=== PATIENT | female | born 1990 | race Caucasian/White ===

== ENCOUNTER 2018-11-08 13:34 | Emergency (ER) | payer OTHER, MEDICAID, SELFPAY ==
[2018-11-08 13:35] VITALS: BP 108/60; PULSE 71; RESP 18; TEMP 36.6; O2SAT 100; BMI 21.0
--- NOTE | 2018-11-08 14:22 | ED_ITS ---
HPI - Nausea/Vomiting/Diarrhea General Chief complaint: Nausea/Vomiting/Diarrhea Stated complaint: vomiting,diarrhea,migraine,fever Time Seen by Provider: 11/08/18 13:37 Source: patient Mode of arrival: ambulatory Limitations: no limitations History of Present Illness HPI Narrative: Patient is a 28-year-old female presenting with vomiting and diarrhea ongoing for the last 3 days. She currently lives in [facility], her has had some symptoms as well for the last 3 days but hers have been worse. She has had frequent episodes of diarrhea sometimes bloody she has pain with diarrhea. She has vomited numerous times. She is unable to keep anything down. She has no localization of abdominal pain. They do not recall that they have eaten anything bad. was recently started on azithromycin for jen matute's diarrhea. She denies any recent antibiotic use. MD complaint: nausea, vomiting, diarrhea and abdominal pain Onset (ago): day(s) (3) Description of Diarrhea: watery and blood-streaked Context: foreign travel Related Data Previous Rx's Medication Instructions Recorded azithromycin 500 mg PO DAILY 3 Days #3 tab 11/08/18 ondansetron 4 mg PO Q8H PRN #10 tab 11/08/18 Allergies Allergy/AdvReac Type Severity Reaction Status Date / Time Sulfa (Sulfonamide Allergy Verified 11/08/18 13:42 Antibiotics) Review of Systems Review of Systems GENERAL: Denies chills, fatigue, malaise, fever, sweats, travel HEENT: Denies sinus pain, ear pain, sore throat, difficulty swallowing, neck pain RESPIRATORY: Denies dyspnea, cough, wheezing, hemoptysis, sputum. CARDIOVASCULAR: Denies chest pain, palpitations, orthopnea, edema GASTROINTESTINAL: See HPI : Denies dysuria, frequency, incontinence, hematuria, urinary retention, flank pain. MUSCULOSKELETAL: Denies weakness, joint pain, or bony pain SKIN: No rash, no erythema, no pruritus NEUROLOGIC: Denies weakness, dizziness, headache, numbness, change in speech, confusion PSYCHIATRIC: No concerning psychosocial issues. 12 point review of systems is negative except for those stated above and HPI FOR[facility]LY [facility] Medical History Patient denies significant medical history (Acute) Social History Smoking Status: Never smoker Social History Smoking Status: Never smoker Exam Initial Vital Signs Initial Vital Signs: Vital Signs Temperature 97.8 F 11/08/18 13:35 Pulse Rate 71 11/08/18 13:35 Respiratory Rate 18 11/08/18 13:35 Blood Pressure 108/60 11/08/18 13:35 Pulse Oximetry 100 11/08/18 13:35 GENERAL: Well-appearing, well-nourished and in no acute distress. HEENT: Head atraumatic,EOMI, pupils reactive, face symmetric, dry mucous membranes CARDIOVASCULAR: Regular rate and rhythm without murmurs, rubs or gallops. RESPIRATORY: Breath sounds equal bilaterally, no wheezes rales or rhonchi. ABDOMEN: Soft, nontender. Normoactive bowel sounds all 4 quadrants. No guarding or rebound. : No CVA tenderness EXTREMITIES: Normal range of motion, no clubbing or edema. Neurovascularly intact NEUROLOGICAL: Alert and oriented x4.Normal gait and speech. Cranial nerves II through XII grossly intact. SKIN: Warm, dry, no laceration, no petechiae, no rashes or lesions. Course Orders Ordered: ED Orders 11/08/18 14:40 Urine Microscopic Stat 11/08/18 14:45 Complete Blood Count AUTO DIFF Stat Comprehensive Metabolic Panel Stat Discontinued Medications Sodium Chloride (Normal Saline 0.9%) 1,000 mls @ 1,000 mls/hr IV BOLUS ONE Stop: 11/08/18 14:52 Last Infusion: 11/08/18 16:08 Dose: 0 mls/hr Admin: 11/08/18 14:23 Dose: 1,000 mls/hr Ketorolac Tromethamine (Toradol) 30 mg IV NOW ONE Stop: 11/08/18 13:54 Last Admin: 11/08/18 14:43 Dose: 30 mg Ondansetron HCl (Zofran) 4 mg IV NOW ONE Stop: 11/08/18 13:54 Last Admin: 11/08/18 14:43 Dose: 4 mg Vital Signs - 8 hr 11/08/18 13:35 11/08/18 14:44 11/08/18 15:00 Temperature 97.8 F Pulse Rate 71 65 48 L Respiratory Rate 18 14 Blood Pressure 108/60 Blood Pressure [Right Arm] 105/60 99/57 L Pulse Oximetry 100 100 100 MDM - Nausea/Vomiting/Diarrhea Lab Data Attestation: I reviewed the patient's lab results. Result diagrams: 11/08/18 14:45 11/08/18 14:45 Lab Results 11/08/18 11/08/18 11/08/18 Range/Units 14:40 14:45 14:45 WBC 7.1 (4.5-11.0) X10^3/uL RBC 4.54 (4.0-5.2) X10^6/uL Hgb 14.7 (12.0-16.0) g/dL Hct 43.2 (36-46) % MCV 95.3 (80-100) fL MCH 32.4 (26-34) PG MCHC 34.0 (30-36) % RDW 13.2 (11.6-14.8) % Plt Count 198 (150-400) X10^3/uL Neut % (Auto) 77.2 H (50-75) % Lymph % (Auto) 11.9 L (25-40) % Chambers % (Auto) 10.1 (3-14) % Eos % (Auto) 0.3 L (2-4) % Baso % (Auto) 0.5 (0-2) % Neut # (Auto) 5500 (6668-4386) /uL Lymph # (Auto) 800 L (6314-5184) /uL Chambers # (Auto) 700 (0-900) /uL Eos # (Auto) 0 (0-450) /uL Baso # (Auto) 0 (0-100) /uL Sodium 140 (137-145) mmol/L Potassium 4.0 (3.4-5.1) mmol/L Chloride 100 (98-107) mmol/L Carbon Dioxide 26 (22-32) mmol/L BUN 9 (7-17) mg/dL Creatinine 0.70 (0.52-1.04) mg/dL Estimated GFR > 60.0 (>60) mL/min BUN/Creatinine Ratio 12.9 (6-22) Glucose 83 (70-100) mg/dL Calcium 9.7 (8.4-10.2) mg/dL Total Bilirubin 0.6 (0.2-1.3) mg/dL AST 32 (14-36) IU/L ALT 31 (9-52) IU/L Alkaline Phosphatase 67 (38-126) U/L Total Protein 8.1 (6.3-8.2) g/dL Albumin 4.8 (3.5-5.0) g/dL Globulin 3.3 (1.7-4.1) g/dL Albumin/Globulin Ratio 1.5 (1.0-2.8) Urine RBC 0-1/hpf (0-5/HPF) Urine WBC None seen (0-5/HPF) Ur Squamous Epith Cells 0-1 /hpf (0-5/HPF) Urine Bacteria None seen (None) Urine Mucus 1+ H (Negative) Ur Culture Indicated? Cult not indicated Point of Care Testing Test Results Negative Urine Dip Bedside Urine Glucose Negative Bedside Urine Bilirubin - Negative Bedside Urine Ketone +++ 80 Urine Specific [place] 1.025 Bedside Urine Occult Blood + Bedside Urine pH 5.5 Bedside Urine Protein +/- 15 Bedside Urine Urobilinogen - Negative Bedside Urine Nitrite - Negative Bedside Urine Leukocytes - Negative Esterase MDM Narrative Medical decision making narrative: The patient is overall feeling better. She is tolerating oral fluids. She had a bowel movement while in the emergency department. is currently being treated for traveler's diarrhea I will treat her for the same with azithromycin. She is given Zofran as well. This time blood work is reassuring, no significant dehydration. Discharge Plan Departure Patient Disposition: Home Clinical Impression: Gastroenteritis Discharge Date/Time: 11/08/18 16:08 Interventions: ED Discharge Assessment Last Done: 11/08/18 16:08 Instructions: DI for Diarrhea and Traveler's Diarrhea -- Adult Activity Restrictions/Additional Instructions: 1) You have been diagnosed with gastroenteritis, likely traveler's diarrhea 2) What to do: Drink frequent but small amounts of fluids. I recommend Gatorade or a Gatorade-like product, as it has small amounts of sugar and salts that improve fluid retention. 3) Take medications as directed Zofran 4 mg every 8 hours if needed for nausea or vomiting Is a throw mycin 500 mg once a day for 3 days 4) Follow up with your primary care provider in 2-3 days [and follow up with ortho, urology etc] 5) Return to ER if you should have any new or worsening symptoms such as, unable to hold down fluids despite use of anti-nausea medications and the small volume oral rehydration strategy. Prescriptions: New ondansetron 4 mg tablet,disintegrating 4 mg PO Q8H PRN (Reason: nausea and vomiting) Qty: 10 RF: 0 azithromycin 500 mg tablet 500 mg PO DAILY 3 Days Qty: 3 RF: 0
[2018-11-08] MEDS: SODIUM CHLORIDE 0.9% 1,000 ML 1000 ML IV (14:23)
[2018-11-08] MEDS: KETOROLAC 60 MG/2 ML VIAL 30 MG IV (14:43)
[2018-11-08] MEDS: ONDANSETRON 4 MG/2 ML INJ IV (14:43)
[2018-11-08 14:44] VITALS: BP 105/60; PULSE 65; RESP 14; O2SAT 100
[2018-11-08 14:51] LABS: Add Manual Diff / Slide Review NO; Basophils Absolute Auto 0 /uL (0-100); Basophils Percent Auto 0.5 % (0-2); Eosinophils Absolute Auto 0 /uL (0-450); Eosinophils Percent Auto 0.3 % (2-4); Hematocrit 43.2 % (36-46); Hemoglobin 14.7 g/dL (12.0-16.0); Lymphocytes Absolute Auto 800 /uL (1100-4500); Lymphocytes Percent Auto 11.9 % (25-40); Mean Corpuscular Hemoglobin 32.4 PG (26-34); Mean Corpuscular Volume 95.3 fL (80-100); Monocytes Absolute Auto 700 /uL (0-900); Monocytes Percent Auto 10.1 % (3-14); Neutrophils Absolute Auto 5500 /uL (1500-7000); Neutrophils Percent Auto 77.2 % (50-75); Platelet Count 198 X10^3/uL (150-400); Red Blood Cell Count 4.54 X10^6/uL (4.0-5.2); Red Cell Distribution Width 13.2 % (11.6-14.8); White Blood Cell Count 7.1 X10^3/uL (4.5-11.0)
[2018-11-08 14:54] LABS: Bacteria Urine None Seen; WBC Urine None Seen (0-5/HPF)
[2018-11-08 15:00] VITALS: BP 99/57; PULSE 48; O2SAT 100
[2018-11-08 15:04] LABS: Mucus Urine 1+ (Negative); RBC Urine 0-1/HPF (0-5/HPF); Squamous Epithelial Cell Urine 0-1 /HPF (0-5/HPF)
[2018-11-08 15:04] LABS: Alanine Aminotransferase 31 IU/L (9-52); Albumin 4.8 g/dL (3.5-5.0); Albumin Globulin Ratio 1.5 (1.0-2.8); Alkaline Phosphatase 67 U/L (38-126); Aspartate Aminotransferase 32 IU/L (14-36); BUN Creatinine Ratio 12.9 (6-22); Bilirubin Total 0.6 mg/dL (0.2-1.3); Blood Urea Nitrogen 9 mg/dL (7-17); Calcium 9.7 mg/dL (8.4-10.2); Carbon Dioxide 26 mmol/L (22-32); Chloride 100 mmol/L (98-107); Estimated Glomerular Filt Rate > 60.0 mL/min (>60); Globulin 3.3 g/dL (1.7-4.1); Glucose 83 mg/dL (70-100); HEMOLYSIS < 15 (0-50); Sodium 140 mmol/L (137-145); Total Protein 8.1 g/dL (6.3-8.2)
[2018-11-08 15:05] LABS: Culture Indicated Urine Cult Not Indicated
== END 2018-11-08 16:08 | disposition home or self-care (01) ==
PROVIDERS: Emergency Provider Emergency Medicine
DX: K52.9 Noninfective gastroenteritis and colitis, unspecified (principal)
CPT/HCPCS: 36591; 80053; 81003; 81015; 81025; 85025; 96361; 96374; 96375; 99283; 99284; J1885; J2405